=== PATIENT | male | born 1945 | race Caucasian/White ===

== ENCOUNTER 2023-08-06 22:17 | Inpatient (IN) | payer OTHER, MEDICAID ==
[~2023-08-06] VITALS: Ht 165.1 cm; Wt 96.6 kg
[2023-08-06 22:22] VITALS: BP 138/85; PULSE 95; RESP 20; TEMP 97.2; O2SAT 100
[2023-08-06 22:54] LABS: BASOPHILS % (AUTO) 0.3 % (0.0-2.0); EOSINOPHILS # (AUTO) 0.2 K/uL (0-0.4); EOSINOPHILS % (AUTO) 1.6 % (0.0-4.0); HEMATOCRIT 21.6 % (36-52); HEMOGLOBIN 7.1 g/dL (12.0-18.0); LYMPHOCYTES # (AUTO) 11.4 K/uL (2.0-11.5); LYMPHOCYTES % (AUTO) 77.6 % (20.5-51.1); MEAN CORPUSCULAR HEMOGLOBIN 32 pg (27-31); MEAN CORPUSCULAR HGB CONC 33 g/dL (33-37); MEAN CORPUSCULAR VOLUME 99.2 fL (80-94); MONOCYTES # (AUTO) 0.2 K/uL (0.8-1.0); MONOCYTES % (AUTO) 1.5 % (1.7-9.3); NEUTROPHILS # (AUTO) 2.8 K/uL (1.8-7.7); PLATELET COUNT (AUTO) 212 K/uL (140-450); RED BLOOD CELL COUNT(AUTO) 2.18 MIL/uL (4.20-6.10); RED CELL DISTRIBUTION WIDTH 17.2 % (11.6-13.7); WHITE BLOOD COUNT (AUTO) 14.6 K/uL (4.8-10.8)
[2023-08-06 22:57] LABS: APPEARANCE,URINE CLEAR (CLEAR); BILIRUBIN,URINE NEGATIVE (NEGATIVE); BLOOD, URINE 1+ (NEGATIVE); COLOR,URINE YELLOW (YELLOW); LEUKOCYTE ESTERASE ,URINE 3+ (NEGATIVE); NITRITE, URINE POSITIVE (NEGATIVE); PROTEIN,URINE TRACE (NEGATIVE); UGLUCOSE NEGATIVE (NEGATIVE); UROBILINOGEN,URINE 0.2 EU/dL (0.2 - 1)
[2023-08-06 23:00] VITALS: BP 115/62; PULSE 83; PULSE 85; RESP 16; O2SAT 100
[2023-08-06 23:08] LABS: ANION GAP 14.8 (8-16); CALCIUM 8.4 mg/dL (8.5-10.1); CARBON DIOXIDE 25.4 mmol/L (21-32); CHLORIDE 107 mmol/L (98-107); CREATININE 1.7 mg/dL (0.6-1.3); GLUCOSE 106 mg/dL (74-106); POTASSIUM 4.2 mmol/L (3.5-5.1); SODIUM SERUM 143 mmol/L (136-145); UREA NITROGEN, BLOOD 81 mg/dL (7-18)
[2023-08-06 23:13] LABS: ALBUMIN 1.8 g/dL (3.4-5.0); BILIRUBIN,DIRECT 0.2 mg/dL (0.0-0.3); TOTAL BILIRUBIN 0.6 mg/dL (0.0-1.0); TOTAL PROTEIN, SERUM 6.9 g/dL (6.4-8.2)
[2023-08-06 23:17] LABS: LACTIC ACID 0.7 mmol/L (0.4-2.0)
[2023-08-06 23:19] LABS: BACTERIA,URINE >30 (MANY) /HPF (None Seen); MUCUS,URINE 1+ /LPF (None Seen); SQUAMOUS EPITHELIAL CELL,UR 4-10 (MOD) /LPF (0-3 (FEW))
[2023-08-07] VITALS (16 sets, daily range): BP systolic 115–126; BP diastolic 70–72; PULSE 72–102; RESP 16–20; TEMP 98.4; O2SAT 92–100
[2023-08-07] MEDS ORDERED: MEROPENEM 1,000 MG VIAL IV ONE (03:12)
[2023-08-07] MEDS ORDERED: VANCOMYCIN 1,000 MG VIAL ONE (03:20)
[2023-08-07] MEDS: MEROPENEM 1,000 MG in NACL 0.9% 50 ML IV ONE (03:21)
[2023-08-07] MEDS: VANCOMYCIN 1,000 MG in DEXTROSE 5% 250 ML IV ONE (03:53)
[2023-08-07] MEDS ORDERED: [UNRECOGNIZED DRUG - CODE] IJ (04:26)
[2023-08-07] MEDS ORDERED: [UNRECOGNIZED DRUG - CODE] IJ (04:26)
[2023-08-07] MEDS ORDERED: [UNRECOGNIZED DRUG - CODE] TD (04:30)
[2023-08-07] MEDS ORDERED: ASPI-1749 PO (04:31)
[2023-08-07] MEDS ORDERED: MAGN400S60 GT (04:32)
[2023-08-07] MEDS ORDERED: DOCU-299 PO (04:32)
[2023-08-07] MEDS ORDERED: CARB1DRO OP (04:34)
[2023-08-07] MEDS ORDERED: ACET-8470 GT (04:34)
[2023-08-07] MEDS ORDERED: PRO5 GT (04:36)
[2023-08-07] MEDS ORDERED: CHOL5000 GT (04:36)
[2023-08-07] MEDS ORDERED: METO5TAB4 PO (04:36)
[2023-08-07] MEDS ORDERED: VITA1TAB44 GT (04:38)
[2023-08-07] MEDS ORDERED: [UNRECOGNIZED DRUG - CODE] GT (04:38)
[2023-08-07] MEDS ORDERED: ZINC220T3 GT (04:38)
[2023-08-07] MEDS ORDERED: ASCO500T95 GT (04:39)
[2023-08-07] MEDS ORDERED: HUM SUBQ (04:40)
[2023-08-07] MEDS: BLOOD GLUCOSE MONITORING 1 DEV DEV FS SCH (06:21)
[2023-08-07 07:49] LABS: BASOPHILS % (AUTO) 0.4 % (0.0-2.0); EOSINOPHILS # (AUTO) 0.2 K/uL (0-0.4); LYMPHOCYTES # (AUTO) 7.1 K/uL (2.0-11.5); LYMPHOCYTES % (AUTO) 72.3 % (20.5-51.1); MEAN CORPUSCULAR HEMOGLOBIN 33 pg (27-31); MEAN CORPUSCULAR HGB CONC 33 g/dL (33-37); MEAN CORPUSCULAR VOLUME 98.6 fL (80-94); MONOCYTES # (AUTO) 0.2 K/uL (0.8-1.0); MONOCYTES % (AUTO) 1.9 % (1.7-9.3); NEUTROPHILS # (AUTO) 2.3 K/uL (1.8-7.7); NEUTROPHILS % (AUTO) 23.4 % (42.2-75.2); PLATELET COUNT (AUTO) 185 K/uL (140-450); RED BLOOD CELL COUNT(AUTO) 1.98 MIL/uL (4.20-6.10); WHITE BLOOD COUNT (AUTO) 9.8 K/uL (4.8-10.8)
[2023-08-07 08:05] LABS: ALANINE AMINOTRANSFERASE 9 U/L (12-78); ALBUMIN 1.7 g/dL (3.4-5.0); ALKALINE PHOSPHATASE 106 U/L (50-136); ANION GAP 13.4 (8-16); ASPARTATE AMINOTRANSFERASE 10 U/L (15-37); CALCIUM 8.2 mg/dL (8.5-10.1); CARBON DIOXIDE 26.5 mmol/L (21-32); CHLORIDE 108 mmol/L (98-107); CREATININE 1.7 mg/dL (0.6-1.3); GLUCOSE 103 mg/dL (74-106); POTASSIUM 3.9 mmol/L (3.5-5.1); SODIUM SERUM 144 mmol/L (136-145); TOTAL BILIRUBIN 0.5 mg/dL (0.0-1.0); TOTAL PROTEIN, SERUM 6.4 g/dL (6.4-8.2)
[2023-08-07 08:12] LABS: UREA NITROGEN, BLOOD 77 mg/dL (7-18)
[2023-08-07 08:40] LABS: HEMOGLOBIN 6.5 g/dL (12.0-18.0)
[2023-08-07 08:41] LABS: HEMATOCRIT 19.5 % (36-52)
[2023-08-07] MEDS ORDERED: diphenhydrAMINE 12.5 MG/5 ML UDC NG SCH ×2 (09:08→09:09)
[2023-08-07] MEDS ORDERED: NACL 0.9% 1,000 ML IV SCH (09:10)
[2023-08-07] MEDS ORDERED: cefTRIAXone 1,000 MG VIAL ONE (09:30)
[2023-08-07] MEDS: PANTOPRAZOLE 40 MG INJ VIAL IVP SCH (09:37)
[2023-08-07 19:41] LABS: HEMATOCRIT 23.4 % (36-52); HEMOGLOBIN 7.8 g/dL (12.0-18.0)
[2023-08-08] VITALS (14 sets, daily range): BP systolic 105–121; BP diastolic 59–68; PULSE 78–111; RESP 16–20; TEMP 96.4–98.1; O2SAT 99–100
[2023-08-08 05:28] LABS: BASOPHILS % (AUTO) 0.3 % (0.0-2.0); EOSINOPHILS # (AUTO) 0.2 K/uL (0-0.4); EOSINOPHILS % (AUTO) 2.2 % (0.0-4.0); HEMATOCRIT 23.6 % (36-52); HEMOGLOBIN 7.9 g/dL (12.0-18.0); LYMPHOCYTES # (AUTO) 5.9 K/uL (2.0-11.5); LYMPHOCYTES % (AUTO) 67.5 % (20.5-51.1); MEAN CORPUSCULAR HEMOGLOBIN 33 pg (27-31); MEAN CORPUSCULAR HGB CONC 34 g/dL (33-37); MEAN CORPUSCULAR VOLUME 97.2 fL (80-94); MONOCYTES # (AUTO) 0.1 K/uL (0.8-1.0); MONOCYTES % (AUTO) 1.2 % (1.7-9.3); NEUTROPHILS # (AUTO) 2.5 K/uL (1.8-7.7); NEUTROPHILS % (AUTO) 28.8 % (42.2-75.2); PLATELET COUNT (AUTO) 187 K/uL (140-450); RED BLOOD CELL COUNT(AUTO) 2.43 MIL/uL (4.20-6.10); RED CELL DISTRIBUTION WIDTH 17.2 % (11.6-13.7); WHITE BLOOD COUNT (AUTO) 8.7 K/uL (4.8-10.8)
[2023-08-08 06:48] LABS: MAGNESIUM 2.7 mg/dL (1.8-2.4); PHOSPHORUS 4.9 mg/dL (2.5-4.9)
[2023-08-08] MEDS: MAG SULF 2000 MG/WATER PREMIX 50 ML IV SCH (07:45)
[2023-08-08 08:00] LABS: ALANINE AMINOTRANSFERASE 6 U/L (12-78); ALBUMIN 1.7 g/dL (3.4-5.0); ALKALINE PHOSPHATASE 102 U/L (50-136); ANION GAP 16.7 (8-16); ASPARTATE AMINOTRANSFERASE 14 U/L (15-37); CALCIUM 8.3 mg/dL (8.5-10.1); CARBON DIOXIDE 24.2 mmol/L (21-32); CHLORIDE 109 mmol/L (98-107); CREATININE 1.6 mg/dL (0.6-1.3); GLUCOSE 113 mg/dL (74-106); POTASSIUM 3.9 mmol/L (3.5-5.1); SODIUM SERUM 146 mmol/L (136-145); TOTAL BILIRUBIN 0.6 mg/dL (0.0-1.0); TOTAL PROTEIN, SERUM 6.3 g/dL (6.4-8.2)
[2023-08-08 08:44] LABS: UREA NITROGEN, BLOOD 77 mg/dL (7-18)
[2023-08-08] MEDS: ASCORBIC ACID 500 MG/5 ML ORASYR GT SCH (09:41)
[2023-08-08] MEDS: VIT-B COMP/VIT-C/FOLIC ACID 1 TAB GT SCH (09:41)
[2023-08-08] MEDS: ASPIRIN 81 MG TAB.CHEW GT SCH (09:41)
[2023-08-08] MEDS: MAGNESIUM HYDROXIDE 2400 MG/30 ML UDC GT SCH (09:41)
[2023-08-08] MEDS: AMIODARONE 200 MG TAB GT SCH (09:42)
[2023-08-08] MEDS: SODIUM FERRIC GLUCONATE 125 MG in NACL 0.9% 100 ML IV SCH (13:53)
[2023-08-09] VITALS (15 sets, daily range): BP systolic 99–132; BP diastolic 55–74; PULSE 67–122; RESP 17–22; TEMP 96.3–98.3; O2SAT 97–100
[2023-08-09 05:28] LABS: BASOPHILS % (AUTO) 0.5 % (0.0-2.0); EOSINOPHILS # (AUTO) 0.1 K/uL (0-0.4); EOSINOPHILS % (AUTO) 1.7 % (0.0-4.0); HEMATOCRIT 24.1 % (36-52); LYMPHOCYTES # (AUTO) 5.5 K/uL (2.0-11.5); LYMPHOCYTES % (AUTO) 64.8 % (20.5-51.1); MEAN CORPUSCULAR HEMOGLOBIN 32 pg (27-31); MEAN CORPUSCULAR HGB CONC 33 g/dL (33-37); MEAN CORPUSCULAR VOLUME 96.7 fL (80-94); MONOCYTES # (AUTO) 0.1 K/uL (0.8-1.0); MONOCYTES % (AUTO) 1.2 % (1.7-9.3); NEUTROPHILS # (AUTO) 2.7 K/uL (1.8-7.7); NEUTROPHILS % (AUTO) 31.8 % (42.2-75.2); PLATELET COUNT (AUTO) 234 K/uL (140-450); RED CELL DISTRIBUTION WIDTH 16.7 % (11.6-13.7); WHITE BLOOD COUNT (AUTO) 8.5 K/uL (4.8-10.8)
[2023-08-09 06:15] LABS: MAGNESIUM 2.6 mg/dL (1.8-2.4); PHOSPHORUS 4.6 mg/dL (2.5-4.9)
[2023-08-09 08:16] LABS: ALANINE AMINOTRANSFERASE 15 U/L (12-78); ALBUMIN 1.8 g/dL (3.4-5.0); ALKALINE PHOSPHATASE 134 U/L (50-136); ANION GAP 19.9 (8-16); ASPARTATE AMINOTRANSFERASE 13 U/L (15-37); CALCIUM 8.6 mg/dL (8.5-10.1); CARBON DIOXIDE 19.9 mmol/L (21-32); CHLORIDE 109 mmol/L (98-107); CREATININE 1.6 mg/dL (0.6-1.3); GLUCOSE 221 mg/dL (74-106); POTASSIUM 3.8 mmol/L (3.5-5.1); SODIUM SERUM 145 mmol/L (136-145); TOTAL BILIRUBIN 0.6 mg/dL (0.0-1.0); TOTAL PROTEIN, SERUM 6.2 g/dL (6.4-8.2)
[2023-08-09 08:18] LABS: UREA NITROGEN, BLOOD 71 mg/dL (7-18)
[2023-08-09 09:04] LABS: CHOL/HDL RATIO 3.3 (1-4.5)
[2023-08-09] MEDS: FUROSEMIDE 40 MG/4 ML VIAL IVP SCH ×2 (09:09→20:39)
[2023-08-09] MEDS: ATORVASTATIN 20 MG TAB PO SCH (09:09)
[2023-08-09] MEDS: carvediloL 3.125 MG TAB PO SCH (10:54)
[2023-08-09] MEDS ORDERED: HYDROCOLLOID DRESSING TP PRN (11:40)
[2023-08-09] MEDS ORDERED: HYDRAGUARD CREAM TP PRN (11:40)
[2023-08-09] MEDS ORDERED: THERAHONEY GEL 42.5 GM TP PRN (11:40)
[2023-08-09] MEDS: THERAHONEY GEL 42.5 GM TP SCH (13:00)
[2023-08-09] MEDS: HYDRAGUARD CREAM TP SCH (13:03)
[2023-08-09] MEDS ORDERED: FLUCONAZOLE 100 MG TAB GT SCH (18:00)
[2023-08-09] MEDS: FLUCONAZOLE 100 MG TAB GT SCH (18:05)
[2023-08-09] MEDS: MICAFUNGIN SODIUM 100 MG in NACL 0.9% 100 ML IV SCH (22:30)
[2023-08-10] VITALS (11 sets, daily range): BP systolic 131–147; BP diastolic 60–78; PULSE 70–130; RESP 16–23; TEMP 36.1; O2SAT 95–99
[2023-08-10 06:06] LABS: BASOPHILS % (AUTO) 0.6 % (0.0-2.0); EOSINOPHILS # (AUTO) 0.1 K/uL (0-0.4); EOSINOPHILS % (AUTO) 1.7 % (0.0-4.0); HEMATOCRIT 22.1 % (36-52); HEMOGLOBIN 7.6 g/dL (12.0-18.0); MEAN CORPUSCULAR HEMOGLOBIN 33 pg (27-31); MEAN CORPUSCULAR HGB CONC 34 g/dL (33-37); MEAN CORPUSCULAR VOLUME 95.6 fL (80-94); MONOCYTES # (AUTO) 0.2 K/uL (0.8-1.0); MONOCYTES % (AUTO) 2.4 % (1.7-9.3); NEUTROPHILS # (AUTO) 2.4 K/uL (1.8-7.7); NEUTROPHILS % (AUTO) 35.3 % (42.2-75.2); PLATELET COUNT (AUTO) 226 K/uL (140-450); RED BLOOD CELL COUNT(AUTO) 2.31 MIL/uL (4.20-6.10); RED CELL DISTRIBUTION WIDTH 16.9 % (11.6-13.7); WHITE BLOOD COUNT (AUTO) 6.7 K/uL (4.8-10.8)
[2023-08-10 06:38] LABS: ALANINE AMINOTRANSFERASE 7 U/L (12-78); ALBUMIN 1.7 g/dL (3.4-5.0); ALKALINE PHOSPHATASE 147 U/L (50-136); ASPARTATE AMINOTRANSFERASE 10 U/L (15-37); CALCIUM 8.1 mg/dL (8.5-10.1); CARBON DIOXIDE 25.5 mmol/L (21-32); CHLORIDE 108 mmol/L (98-107); CREATININE 1.7 mg/dL (0.6-1.3); GLUCOSE 375 mg/dL (74-106); POTASSIUM 3.5 mmol/L (3.5-5.1); SODIUM SERUM 146 mmol/L (136-145); TOTAL BILIRUBIN 0.4 mg/dL (0.0-1.0); TOTAL PROTEIN, SERUM 6.3 g/dL (6.4-8.2); UREA NITROGEN, BLOOD 72 mg/dL (7-18)
[2023-08-10] MEDS: SODIUM FERRIC GLUCONATE 125 MG in NACL 0.9% 100 ML IV SCH (11:41)
[2023-08-11] VITALS (16 sets, daily range): BP systolic 121–149; BP diastolic 62–96; PULSE 97–134; RESP 17–25; TEMP 97.8–99.2; O2SAT 96–100
[2023-08-11 06:14] LABS: BASOPHILS % (AUTO) 0.6 % (0.0-2.0); EOSINOPHILS % (AUTO) 0.1 % (0.0-4.0); HEMATOCRIT 23.3 % (36-52); HEMOGLOBIN 7.8 g/dL (12.0-18.0); LYMPHOCYTES # (AUTO) 3.6 K/uL (2.0-11.5); LYMPHOCYTES % (AUTO) 60.5 % (20.5-51.1); MEAN CORPUSCULAR HEMOGLOBIN 32 pg (27-31); MEAN CORPUSCULAR HGB CONC 33 g/dL (33-37); MEAN CORPUSCULAR VOLUME 96.2 fL (80-94); MONOCYTES # (AUTO) 0.1 K/uL (0.8-1.0); MONOCYTES % (AUTO) 0.9 % (1.7-9.3); NEUTROPHILS # (AUTO) 2.2 K/uL (1.8-7.7); NEUTROPHILS % (AUTO) 37.9 % (42.2-75.2); PLATELET COUNT (AUTO) 239 K/uL (140-450); RED BLOOD CELL COUNT(AUTO) 2.43 MIL/uL (4.20-6.10); RED CELL DISTRIBUTION WIDTH 17.2 % (11.6-13.7); WHITE BLOOD COUNT (AUTO) 5.9 K/uL (4.8-10.8)
[2023-08-11 06:41] LABS: ALANINE AMINOTRANSFERASE 7 U/L (12-78); ALBUMIN 1.8 g/dL (3.4-5.0); ALKALINE PHOSPHATASE 138 U/L (50-136); ASPARTATE AMINOTRANSFERASE 10 U/L (15-37); CALCIUM 8.3 mg/dL (8.5-10.1); CARBON DIOXIDE 24.7 mmol/L (21-32); CHLORIDE 107 mmol/L (98-107); CREATININE 1.8 mg/dL (0.6-1.3); POTASSIUM 3.7 mmol/L (3.5-5.1); SODIUM SERUM 146 mmol/L (136-145); TOTAL BILIRUBIN 0.4 mg/dL (0.0-1.0); TOTAL PROTEIN, SERUM 6.6 g/dL (6.4-8.2)
[2023-08-11] MEDS ORDERED: DEXTROSE 50% 50 ML SYR IVP PRN (07:45)
[2023-08-11 07:55] LABS: GLUCOSE 605 mg/dL (74-106)
[2023-08-11 07:56] LABS: UREA NITROGEN, BLOOD 78 mg/dL (7-18)
[2023-08-11] MEDS: INSULIN LISPRO SLIDING SCALE 100 UNITS/ML VIAL SUBQ PRN (08:14)
[2023-08-11] MEDS: INSULIN LANTUS 100 UNITS/ML 10 ML VIAL SUBQ SCH (08:58)
[2023-08-11] MEDS ORDERED: EPOETIN ALFA 4,000 UNITS/ML VIAL IV SCH (09:00)
[2023-08-11] MEDS: NACL 0.9% 500 ML IV SCH (09:12)
[2023-08-11] MEDS: BLOOD GLUCOSE MONITORING 1 DEV DEV FS SCH (10:59)
[2023-08-11] MEDS: FUROSEMIDE 40 MG/4 ML VIAL IVP SCH (12:38)
[2023-08-11] MEDS: INSULIN LISPRO 100 UNITS/ML VIAL SUBQ ONE (21:33)
[2023-08-12] VITALS (14 sets, daily range): BP systolic 121–133; BP diastolic 67–75; PULSE 86–109; RESP 16–21; TEMP 97.7–98.3; O2SAT 97–100
[2023-08-12 06:58] LABS: BASOPHILS % (AUTO) 0.4 % (0.0-2.0); EOSINOPHILS % (AUTO) 0.3 % (0.0-4.0); HEMATOCRIT 21.3 % (36-52); HEMOGLOBIN 7.4 g/dL (12.0-18.0); LYMPHOCYTES # (AUTO) 4.4 K/uL (2.0-11.5); LYMPHOCYTES % (AUTO) 65.9 % (20.5-51.1); MEAN CORPUSCULAR HEMOGLOBIN 33 pg (27-31); MEAN CORPUSCULAR HGB CONC 35 g/dL (33-37); MEAN CORPUSCULAR VOLUME 95.3 fL (80-94); MONOCYTES # (AUTO) 0.1 K/uL (0.8-1.0); NEUTROPHILS # (AUTO) 2.2 K/uL (1.8-7.7); NEUTROPHILS % (AUTO) 32.4 % (42.2-75.2); PLATELET COUNT (AUTO) 239 K/uL (140-450); RED BLOOD CELL COUNT(AUTO) 2.23 MIL/uL (4.20-6.10); RED CELL DISTRIBUTION WIDTH 16.7 % (11.6-13.7); WHITE BLOOD COUNT (AUTO) 6.7 K/uL (4.8-10.8)
[2023-08-12 07:23] LABS: ALANINE AMINOTRANSFERASE 9 U/L (12-78); ALBUMIN 1.7 g/dL (3.4-5.0); ALKALINE PHOSPHATASE 123 U/L (50-136); ANION GAP 13.4 (8-16); ASPARTATE AMINOTRANSFERASE 21 U/L (15-37); CALCIUM 8.2 mg/dL (8.5-10.1); CHLORIDE 109 mmol/L (98-107); CREATININE 1.8 mg/dL (0.6-1.3); POTASSIUM 3.4 mmol/L (3.5-5.1); SODIUM SERUM 145 mmol/L (136-145); TOTAL BILIRUBIN 0.4 mg/dL (0.0-1.0); TOTAL PROTEIN, SERUM 6.2 g/dL (6.4-8.2)
[2023-08-12 07:32] LABS: GLUCOSE 484 mg/dL (74-106); UREA NITROGEN, BLOOD 87 mg/dL (7-18)
[2023-08-12] MEDS: HYDROCOLLOID DRESSING TP SCH (09:00)
[2023-08-12] MEDS ORDERED: metOLazone 5 MG TAB PO SCH (09:00)
[2023-08-12] MEDS: FUROSEMIDE 40 MG/4 ML VIAL IVP SCH (09:44)
[2023-08-12] MEDS: POTASSIUM CHLORIDE 20% 40 MEQ/15 ML UDC GT PRN (09:45)
[2023-08-12] MEDS: INSULIN LANTUS 100 UNITS/ML 10 ML VIAL SUBQ SCH (09:47)
[2023-08-12] MEDS ORDERED: MEROPENEM 1,000 MG in NACL 0.9% 50 ML IV SCH (13:00)
[2023-08-12] MEDS ORDERED: MEROPENEM 500 MG in NACL 0.9% 50 ML IV SCH (13:00)
[2023-08-13] VITALS (13 sets, daily range): BP systolic 126–144; BP diastolic 68–83; PULSE 81–113; RESP 18–20; TEMP 97.8–98.4; O2SAT 98–100
[2023-08-13 06:55] LABS: ANION GAP 11.9 (8-16); CALCIUM 8.5 mg/dL (8.5-10.1); CARBON DIOXIDE 29.8 mmol/L (21-32); CHLORIDE 111 mmol/L (98-107); CREATININE 1.8 mg/dL (0.6-1.3); POTASSIUM 3.7 mmol/L (3.5-5.1); SODIUM SERUM 149 mmol/L (136-145)
[2023-08-13 06:57] LABS: GLUCOSE 448 mg/dL (74-106); UREA NITROGEN, BLOOD 91 mg/dL (7-18)
[2023-08-13] MEDS: INSULIN LANTUS 100 UNITS/ML 10 ML VIAL SUBQ SCH (12:43)
[2023-08-14] VITALS (15 sets, daily range): BP systolic 120–141; BP diastolic 66–86; PULSE 81–105; RESP 18–20; TEMP 97.3–99.6; O2SAT 98–100
[2023-08-14 07:45] LABS: INR 1.16 (0.8-1.2); PARTIAL THROMBOPLASTIN TIME 26.7 secs (22-35.6); PROTHROMBIN TIME 12.1 secs (10.8-13.4)
[2023-08-14 11:34] LABS: BASOPHILS % (AUTO) 0.5 % (0.0-2.0); EOSINOPHILS # (AUTO) 0.1 K/uL (0-0.4); EOSINOPHILS % (AUTO) 1.1 % (0.0-4.0); HEMATOCRIT 23.1 % (36-52); HEMOGLOBIN 7.8 g/dL (12.0-18.0); LYMPHOCYTES # (AUTO) 4.6 K/uL (2.0-11.5); LYMPHOCYTES % (AUTO) 57.3 % (20.5-51.1); MEAN CORPUSCULAR HEMOGLOBIN 32 pg (27-31); MEAN CORPUSCULAR HGB CONC 34 g/dL (33-37); MONOCYTES # (AUTO) 0.1 K/uL (0.8-1.0); MONOCYTES % (AUTO) 0.8 % (1.7-9.3); NEUTROPHILS # (AUTO) 3.3 K/uL (1.8-7.7); NEUTROPHILS % (AUTO) 40.3 % (42.2-75.2); PLATELET COUNT (AUTO) 257 K/uL (140-450); RED BLOOD CELL COUNT(AUTO) 2.41 MIL/uL (4.20-6.10); RED CELL DISTRIBUTION WIDTH 16.6 % (11.6-13.7); WHITE BLOOD COUNT (AUTO) 8.1 K/uL (4.8-10.8)
[2023-08-14 11:49] LABS: ALANINE AMINOTRANSFERASE 26 U/L (12-78); ALBUMIN 1.8 g/dL (3.4-5.0); ALKALINE PHOSPHATASE 113 U/L (50-136); ANION GAP 10.8 (8-16); ASPARTATE AMINOTRANSFERASE 20 U/L (15-37); CALCIUM 8.5 mg/dL (8.5-10.1); CARBON DIOXIDE 30.7 mmol/L (21-32); CHLORIDE 112 mmol/L (98-107); CREATININE 1.6 mg/dL (0.6-1.3); GLUCOSE 250 mg/dL (74-106); POTASSIUM 3.5 mmol/L (3.5-5.1); SODIUM SERUM 150 mmol/L (136-145); TOTAL BILIRUBIN 0.3 mg/dL (0.0-1.0); TOTAL PROTEIN, SERUM 5.9 g/dL (6.4-8.2)
[2023-08-14 11:59] LABS: UREA NITROGEN, BLOOD 86 mg/dL (7-18)
[2023-08-15] VITALS (11 sets, daily range): BP systolic 122–148; BP diastolic 63–72; PULSE 88–104; RESP 18–20; TEMP 97.7–98.8; O2SAT 10–100
[2023-08-15 06:11] LABS: BASOPHILS % (AUTO) 0.2 % (0.0-2.0); EOSINOPHILS # (AUTO) 0.1 K/uL (0-0.4); EOSINOPHILS % (AUTO) 1.7 % (0.0-4.0); HEMATOCRIT 22.7 % (36-52); HEMOGLOBIN 7.7 g/dL (12.0-18.0); LYMPHOCYTES # (AUTO) 4.7 K/uL (2.0-11.5); LYMPHOCYTES % (AUTO) 58.1 % (20.5-51.1); MEAN CORPUSCULAR HEMOGLOBIN 33 pg (27-31); MEAN CORPUSCULAR HGB CONC 34 g/dL (33-37); MEAN CORPUSCULAR VOLUME 96.2 fL (80-94); MONOCYTES # (AUTO) 0.1 K/uL (0.8-1.0); NEUTROPHILS # (AUTO) 3.2 K/uL (1.8-7.7); PLATELET COUNT (AUTO) 232 K/uL (140-450); RED BLOOD CELL COUNT(AUTO) 2.36 MIL/uL (4.20-6.10); RED CELL DISTRIBUTION WIDTH 16.8 % (11.6-13.7); WHITE BLOOD COUNT (AUTO) 8.1 K/uL (4.8-10.8)
[2023-08-15 06:37] LABS: CARBON DIOXIDE 29.5 mmol/L (21-32); CHLORIDE 115 mmol/L (98-107); POTASSIUM 3.4 mmol/L (3.5-5.1); SODIUM SERUM 154 mmol/L (136-145)
[2023-08-15 06:38] LABS: ALANINE AMINOTRANSFERASE 26 U/L (12-78); ALBUMIN 1.7 g/dL (3.4-5.0); ALKALINE PHOSPHATASE 128 U/L (50-136); ANION GAP 12.9 (8-16); ASPARTATE AMINOTRANSFERASE 25 U/L (15-37); CALCIUM 8.1 mg/dL (8.5-10.1); CREATININE 1.6 mg/dL (0.6-1.3); GLUCOSE 232 mg/dL (74-106); TOTAL BILIRUBIN 0.4 mg/dL (0.0-1.0); TOTAL PROTEIN, SERUM 6.2 g/dL (6.4-8.2)
[2023-08-15 08:36] LABS: UREA NITROGEN, BLOOD 85 mg/dL (7-18)
[2023-08-15] MEDS: FUROSEMIDE 40 MG/4 ML VIAL IVP SCH (17:16)
[2023-08-16] VITALS (10 sets, daily range): BP systolic 126–133; BP diastolic 79–84; PULSE 87–128; RESP 17–20; TEMP 99.1–102.5; O2SAT 98–100
[2023-08-16 05:40] LABS: BASOPHILS % (AUTO) 0.4 % (0.0-2.0); EOSINOPHILS # (AUTO) 0.2 K/uL (0-0.4); HEMATOCRIT 22.7 % (36-52); HEMOGLOBIN 7.6 g/dL (12.0-18.0); LYMPHOCYTES # (AUTO) 5.1 K/uL (2.0-11.5); LYMPHOCYTES % (AUTO) 62.7 % (20.5-51.1); MEAN CORPUSCULAR HEMOGLOBIN 32 pg (27-31); MEAN CORPUSCULAR HGB CONC 34 g/dL (33-37); MEAN CORPUSCULAR VOLUME 96.3 fL (80-94); MONOCYTES # (AUTO) 0.1 K/uL (0.8-1.0); MONOCYTES % (AUTO) 1.3 % (1.7-9.3); NEUTROPHILS # (AUTO) 2.7 K/uL (1.8-7.7); NEUTROPHILS % (AUTO) 33.6 % (42.2-75.2); PLATELET COUNT (AUTO) 214 K/uL (140-450); RED BLOOD CELL COUNT(AUTO) 2.36 MIL/uL (4.20-6.10); RED CELL DISTRIBUTION WIDTH 17.1 % (11.6-13.7); WHITE BLOOD COUNT (AUTO) 8.2 K/uL (4.8-10.8)
[2023-08-16 06:36] LABS: ALANINE AMINOTRANSFERASE 25 U/L (12-78); ALBUMIN 1.7 g/dL (3.4-5.0); ALKALINE PHOSPHATASE 114 U/L (50-136); ASPARTATE AMINOTRANSFERASE 17 U/L (15-37); CALCIUM 8.4 mg/dL (8.5-10.1); CARBON DIOXIDE 29.5 mmol/L (21-32); CHLORIDE 112 mmol/L (98-107); CREATININE 1.5 mg/dL (0.6-1.3); GLUCOSE 221 mg/dL (74-106); POTASSIUM 4.5 mmol/L (3.5-5.1); SODIUM SERUM 151 mmol/L (136-145); TOTAL PROTEIN, SERUM 5.8 g/dL (6.4-8.2)
[2023-08-16 07:11] LABS: UREA NITROGEN, BLOOD 89 mg/dL (7-18)
[2023-08-16 10:16] LABS: TOTAL BILIRUBIN 0.4 mg/dL (0.0-1.0)
[2023-08-16] MEDS: ACETAMINOPHEN 325 MG TAB PO PRN (20:37)
[2023-08-17] VITALS (15 sets, daily range): BP systolic 115–135; BP diastolic 62–95; PULSE 93–115; RESP 18–20; TEMP 97.2–99.4; O2SAT 100
[2023-08-17 05:58] LABS: BASOPHILS % (AUTO) 0.2 % (0.0-2.0); EOSINOPHILS # (AUTO) 0.1 K/uL (0-0.4); EOSINOPHILS % (AUTO) 1.5 % (0.0-4.0); LYMPHOCYTES # (AUTO) 6.2 K/uL (2.0-11.5); LYMPHOCYTES % (AUTO) 71.2 % (20.5-51.1); MEAN CORPUSCULAR HEMOGLOBIN 32 pg (27-31); MEAN CORPUSCULAR HGB CONC 33 g/dL (33-37); MEAN CORPUSCULAR VOLUME 96.2 fL (80-94); MONOCYTES # (AUTO) 0.1 K/uL (0.8-1.0); MONOCYTES % (AUTO) 1.4 % (1.7-9.3); NEUTROPHILS # (AUTO) 2.2 K/uL (1.8-7.7); NEUTROPHILS % (AUTO) 25.7 % (42.2-75.2); PLATELET COUNT (AUTO) 189 K/uL (140-450); RED BLOOD CELL COUNT(AUTO) 2.16 MIL/uL (4.20-6.10); RED CELL DISTRIBUTION WIDTH 17.1 % (11.6-13.7); WHITE BLOOD COUNT (AUTO) 8.7 K/uL (4.8-10.8)
[2023-08-17 06:06] LABS: HEMATOCRIT 20.8 % (36-52)
[2023-08-17 06:40] LABS: ALANINE AMINOTRANSFERASE 22 U/L (12-78); ALBUMIN 1.5 g/dL (3.4-5.0); ALKALINE PHOSPHATASE 115 U/L (50-136); ANION GAP 13.1 (8-16); ASPARTATE AMINOTRANSFERASE 28 U/L (15-37); CALCIUM 7.9 mg/dL (8.5-10.1); CARBON DIOXIDE 30.5 mmol/L (21-32); CHLORIDE 112 mmol/L (98-107); CREATININE 1.6 mg/dL (0.6-1.3); GLUCOSE 167 mg/dL (74-106); POTASSIUM 4.6 mmol/L (3.5-5.1); SODIUM SERUM 151 mmol/L (136-145); TOTAL BILIRUBIN 0.6 mg/dL (0.0-1.0); TOTAL PROTEIN, SERUM 5.9 g/dL (6.4-8.2)
[2023-08-17 06:45] LABS: UREA NITROGEN, BLOOD 92 mg/dL (7-18)
[2023-08-17] MEDS ORDERED: ACETAMINOPHEN 325 MG TAB PO SCH (09:30)
[2023-08-17 12:13] LABS: HEMOGLOBIN 8.1 g/dL (12.0-18.0)
[2023-08-17] MEDS: fentaNYL citrate 0.05 MG/ML VIAL ONE (13:49)
[2023-08-17] MEDS: MIDAZOLAM 2 MG/2 ML VIAL ONE (13:49)
[2023-08-17] MEDS: MICAFUNGIN SODIUM 100 MG in NACL 0.9% 100 ML IV SCH (18:19)
[2023-08-18] VITALS (19 sets, daily range): BP systolic 98–136; BP diastolic 55–63; PULSE 91–106; RESP 18–20; TEMP 97.2–99.8; O2SAT 95–100
[2023-08-18 05:48] LABS: BASOPHILS # (AUTO) 0.1 K/uL (0.00-0.22); BASOPHILS % (AUTO) 0.5 % (0.0-2.0); EOSINOPHILS # (AUTO) 0.1 K/uL (0-0.4); EOSINOPHILS % (AUTO) 1.4 % (0.0-4.0); HEMATOCRIT 23.7 % (36-52); LYMPHOCYTES # (AUTO) 7.6 K/uL (2.0-11.5); LYMPHOCYTES % (AUTO) 71.4 % (20.5-51.1); MEAN CORPUSCULAR HEMOGLOBIN 32 pg (27-31); MEAN CORPUSCULAR HGB CONC 34 g/dL (33-37); MEAN CORPUSCULAR VOLUME 93.8 fL (80-94); MONOCYTES # (AUTO) 0.2 K/uL (0.8-1.0); MONOCYTES % (AUTO) 1.5 % (1.7-9.3); NEUTROPHILS # (AUTO) 2.7 K/uL (1.8-7.7); NEUTROPHILS % (AUTO) 25.2 % (42.2-75.2); PLATELET COUNT (AUTO) 168 K/uL (140-450); RED BLOOD CELL COUNT(AUTO) 2.52 MIL/uL (4.20-6.10); RED CELL DISTRIBUTION WIDTH 17.6 % (11.6-13.7); WHITE BLOOD COUNT (AUTO) 10.6 K/uL (4.8-10.8)
[2023-08-18 06:39] LABS: ALANINE AMINOTRANSFERASE 28 U/L (12-78); ALBUMIN 1.5 g/dL (3.4-5.0); ALKALINE PHOSPHATASE 124 U/L (50-136); ANION GAP 13.3 (8-16); ASPARTATE AMINOTRANSFERASE 35 U/L (15-37); CALCIUM 7.8 mg/dL (8.5-10.1); CARBON DIOXIDE 28.8 mmol/L (21-32); CHLORIDE 110 mmol/L (98-107); CREATININE 1.7 mg/dL (0.6-1.3); GLUCOSE 299 mg/dL (74-106); MAGNESIUM 2.6 mg/dL (1.8-2.4); PHOSPHORUS 4.1 mg/dL (2.5-4.9); POTASSIUM 5.1 mmol/L (3.5-5.1); SODIUM SERUM 147 mmol/L (136-145); TOTAL BILIRUBIN 0.4 mg/dL (0.0-1.0)
[2023-08-18 06:42] LABS: UREA NITROGEN, BLOOD 90 mg/dL (7-18)
[2023-08-19] VITALS (19 sets, daily range): BP systolic 111–131; BP diastolic 56–88; PULSE 99–118; RESP 17–20; TEMP 97.8–100.5; O2SAT 98–100
[2023-08-19 06:23] LABS: ALANINE AMINOTRANSFERASE 32 U/L (12-78); ALBUMIN 1.4 g/dL (3.4-5.0); ALKALINE PHOSPHATASE 126 U/L (50-136); ANION GAP 10.3 (8-16); ASPARTATE AMINOTRANSFERASE 35 U/L (15-37); CALCIUM 7.6 mg/dL (8.5-10.1); CHLORIDE 109 mmol/L (98-107); CREATININE 1.8 mg/dL (0.6-1.3); GLUCOSE 232 mg/dL (74-106); MAGNESIUM 2.6 mg/dL (1.8-2.4); POTASSIUM 5.3 mmol/L (3.5-5.1); SODIUM SERUM 144 mmol/L (136-145); TOTAL BILIRUBIN 0.4 mg/dL (0.0-1.0); TOTAL PROTEIN, SERUM 5.7 g/dL (6.4-8.2)
[2023-08-19 06:28] LABS: UREA NITROGEN, BLOOD 90 mg/dL (7-18)
[2023-08-19 06:29] LABS: BASOPHILS % (AUTO) 0.2 % (0.0-2.0); EOSINOPHILS # (AUTO) 0.2 K/uL (0-0.4); EOSINOPHILS % (AUTO) 1.3 % (0.0-4.0); HEMATOCRIT 24.4 % (36-52); HEMOGLOBIN 8.2 g/dL (12.0-18.0); LYMPHOCYTES % (AUTO) 68.7 % (20.5-51.1); MEAN CORPUSCULAR HEMOGLOBIN 31 pg (27-31); MEAN CORPUSCULAR HGB CONC 34 g/dL (33-37); MEAN CORPUSCULAR VOLUME 93.7 fL (80-94); MONOCYTES # (AUTO) 0.2 K/uL (0.8-1.0); MONOCYTES % (AUTO) 1.4 % (1.7-9.3); NEUTROPHILS # (AUTO) 3.3 K/uL (1.8-7.7); NEUTROPHILS % (AUTO) 28.4 % (42.2-75.2); PLATELET COUNT (AUTO) 221 K/uL (140-450); RED BLOOD CELL COUNT(AUTO) 2.61 MIL/uL (4.20-6.10); RED CELL DISTRIBUTION WIDTH 17.4 % (11.6-13.7); WHITE BLOOD COUNT (AUTO) 11.7 K/uL (4.8-10.8)
[2023-08-19] MEDS: SODIUM POLYSTYRENE 15 GM/60 ML UDBTL PO SCH (15:45)
[2023-08-19] MEDS: METOPROLOL 50 MG TAB PO SCH (15:58)
[2023-08-19] MEDS: CRUSHER, PILL MC ONE (16:12)
[2023-08-20] VITALS (16 sets, daily range): BP systolic 107–126; BP diastolic 54–78; PULSE 96–132; RESP 19–20; TEMP 98.4–99.1; O2SAT 98–100
[2023-08-20 06:51] LABS: ALANINE AMINOTRANSFERASE 42 U/L (12-78); ALBUMIN 1.5 g/dL (3.4-5.0); ALKALINE PHOSPHATASE 144 U/L (50-136); ANION GAP 13.1 (8-16); ASPARTATE AMINOTRANSFERASE 41 U/L (15-37); CALCIUM 7.7 mg/dL (8.5-10.1); CHLORIDE 107 mmol/L (98-107); CREATININE 1.9 mg/dL (0.6-1.3); GLUCOSE 209 mg/dL (74-106); MAGNESIUM 2.7 mg/dL (1.8-2.4); PHOSPHORUS 4.3 mg/dL (2.5-4.9); POTASSIUM 5.1 mmol/L (3.5-5.1); SODIUM SERUM 144 mmol/L (136-145); TOTAL BILIRUBIN 0.4 mg/dL (0.0-1.0)
[2023-08-20 06:58] LABS: UREA NITROGEN, BLOOD 96 mg/dL (7-18)
[2023-08-20 08:20] LABS: BASOPHILS # (AUTO) 0.1 K/uL (0.00-0.22); BASOPHILS % (AUTO) 0.5 % (0.0-2.0); EOSINOPHILS # (AUTO) 0.1 K/uL (0-0.4); EOSINOPHILS % (AUTO) 1.1 % (0.0-4.0); HEMATOCRIT 22.2 % (36-52); HEMOGLOBIN 7.3 g/dL (12.0-18.0); LYMPHOCYTES # (AUTO) 8.5 K/uL (2.0-11.5); MEAN CORPUSCULAR HEMOGLOBIN 31 pg (27-31); MEAN CORPUSCULAR HGB CONC 33 g/dL (33-37); MEAN CORPUSCULAR VOLUME 95.1 fL (80-94); MONOCYTES # (AUTO) 0.2 K/uL (0.8-1.0); MONOCYTES % (AUTO) 1.3 % (1.7-9.3); NEUTROPHILS # (AUTO) 3.1 K/uL (1.8-7.7); NEUTROPHILS % (AUTO) 26.1 % (42.2-75.2); PLATELET COUNT (AUTO) 229 K/uL (140-450); RED BLOOD CELL COUNT(AUTO) 2.33 MIL/uL (4.20-6.10); RED CELL DISTRIBUTION WIDTH 17.1 % (11.6-13.7); WHITE BLOOD COUNT (AUTO) 11.9 K/uL (4.8-10.8)
[2023-08-20] MEDS: METOPROLOL 50 MG TAB PO SCH ×2 (11:58→20:46)
[2023-08-20] MEDS: NACL 0.9% 1,000 ML IV SCH (18:25)
[2023-08-21] VITALS: BP 108/66; PULSE 100; PULSE 103; RESP 19; TEMP 98.7; O2SAT 99
[2023-08-21 00:32] VITALS: PULSE 110; O2SAT 99
[2023-08-21 04:00] VITALS: BP 104/59; PULSE 101; RESP 19; TEMP 99.1; O2SAT 99
[2023-08-21 04:04] VITALS: PULSE 106; O2SAT 98
[2023-08-21 08:00] VITALS: PULSE 107; O2SAT 100
[2023-08-21 09:16] LABS: BASOPHILS # (AUTO) 0.1 K/uL (0.00-0.22); BASOPHILS % (AUTO) 0.9 % (0.0-2.0); EOSINOPHILS # (AUTO) 0.1 K/uL (0-0.4); HEMATOCRIT 22.9 % (36-52); HEMOGLOBIN 7.4 g/dL (12.0-18.0); LYMPHOCYTES # (AUTO) 8.4 K/uL (2.0-11.5); LYMPHOCYTES % (AUTO) 67.6 % (20.5-51.1); MEAN CORPUSCULAR HEMOGLOBIN 31 pg (27-31); MEAN CORPUSCULAR HGB CONC 33 g/dL (33-37); MEAN CORPUSCULAR VOLUME 94.6 fL (80-94); MONOCYTES # (AUTO) 0.1 K/uL (0.8-1.0); NEUTROPHILS # (AUTO) 3.7 K/uL (1.8-7.7); NEUTROPHILS % (AUTO) 29.5 % (42.2-75.2); PLATELET COUNT (AUTO) 257 K/uL (140-450); RED BLOOD CELL COUNT(AUTO) 2.42 MIL/uL (4.20-6.10); RED CELL DISTRIBUTION WIDTH 16.9 % (11.6-13.7); WHITE BLOOD COUNT (AUTO) 12.5 K/uL (4.8-10.8)
[2023-08-21 09:39] LABS: ALANINE AMINOTRANSFERASE 49 U/L (12-78); ALBUMIN 1.4 g/dL (3.4-5.0); ALKALINE PHOSPHATASE 163 U/L (50-136); ANION GAP 11.9 (8-16); ASPARTATE AMINOTRANSFERASE 49 U/L (15-37); CALCIUM 7.5 mg/dL (8.5-10.1); CARBON DIOXIDE 28.5 mmol/L (21-32); CHLORIDE 107 mmol/L (98-107); CREATININE 1.9 mg/dL (0.6-1.3); GLUCOSE 197 mg/dL (74-106); POTASSIUM 5.4 mmol/L (3.5-5.1); SODIUM SERUM 142 mmol/L (136-145); TOTAL BILIRUBIN 0.3 mg/dL (0.0-1.0); TOTAL PROTEIN, SERUM 6.1 g/dL (6.4-8.2)
[2023-08-21 09:43] LABS: UREA NITROGEN, BLOOD 92 mg/dL (7-18)
[2023-08-21] MEDS ORDERED: MICA100V IV (12:16)
[2023-08-21] MEDS ORDERED: METO50TA99 PO (12:16)
[2023-08-21] MEDS ORDERED: HUMSLIDE SUBQ (12:16)
[2023-08-21] MEDS ORDERED: KAY15 GT (12:16)
[2023-08-21] MEDS ORDERED: LANTUS SUBQ (12:16)
[2023-08-21] MEDS ORDERED: SODIUM POLYSTYRENE 15 GM/60 ML UDBTL GT SCH (16:15)
[2023-08-21] MEDS: SODIUM POLYSTYRENE 15 GM/60 ML UDBTL GT SCH (16:21)
== END 2023-08-21 17:05 | DRG 870 ==
LOC: MED 22:17 → MTU 08-07 05:59 → MMU 08-07 13:41 → MTU 08-07 14:23
PROVIDERS: ADMIT Family Medicine; ATTEND Family Medicine
PROC: 5A1955Z Respiratory Ventilation, Greater than 96 Consecutive Hours (ICD-10-PCS; principal; 2023-08-06)
PROC: 0W993ZZ Drainage of Right Pleural Cavity, Percutaneous Approach (ICD-10-PCS; 2023-08-14)
PROC: 30233N1 Transfusion of Nonautologous Red Blood Cells into Peripheral Vein, Percutaneous Approach (ICD-10-PCS; 2023-08-17)
DX: A41.9 Sepsis, unspecified organism (principal); I50.33 Acute on chronic diastolic (congestive) heart failure; J15.69 Pneumonia due to other Gram-negative bacteria; N39.0 Urinary tract infection, site not specified; G93.40 Encephalopathy, unspecified; J96.10 Chronic respiratory failure, unspecified whether with hypoxia or hypercapnia; N17.9 Acute kidney failure, unspecified; I13.0 Hypertensive heart and chronic kidney disease with heart failure and stage 1 through stage 4 chronic kidney disease, or unspecified chronic kidney disease; J95.851 Ventilator associated pneumonia; N18.9 Chronic kidney disease, unspecified; F03.90 Unspecified dementia, unspecified severity, without behavioral disturbance, psychotic disturbance, mood disturbance, and anxiety; D63.8 Anemia in other chronic diseases classified elsewhere; E88.09 Other disorders of plasma-protein metabolism, not elsewhere classified; I48.0 Paroxysmal atrial fibrillation; E11.22 Type 2 diabetes mellitus with diabetic chronic kidney disease; J44.9 Chronic obstructive pulmonary disease, unspecified; Z93.0 Tracheostomy status; Z79.01 Long term (current) use of anticoagulants; I48.91 Unspecified atrial fibrillation
CPT/HCPCS: 36415; 71045; 71250; 76604; 76942; 78807; 80048; 80053; 80076; 81001; 82009; 82272; 82948; 83540; 83605; 83735; 83880; 84100; 85018; 85025; 85610; 85730; 86886; 86900; 86901; 86920; 87040; 87081; 87086; 93005; 94002; 94003; 96365; 96375; 99285; C9113; J0696; J1815; J1940; J2001; J2185; J2248; J2250; J2916; J3010; J3370; J7060; P9016; Q0092

== ENCOUNTER 2023-08-23 02:08 | Inpatient (IN) | payer OTHER, MEDICAID ==
[2023-08-23] VITALS (19 sets, daily range): BP systolic 91–134; BP diastolic 52–76; PULSE 90–124; RESP 18–22; TEMP 97.2–98.2; O2SAT 97–100
[~2023-08-23] VITALS: Ht 177.8 cm; Wt 67.6 kg
[~2023-08-23 02:08] MED LIST: ACET-8470 GT; ASCO500T95 GT; ASPI-1749 PO; CARB1DRO OP; CHOL5000 GT; DOCU-299 PO; HUM SUBQ; HUMSLIDE SUBQ; KAY15 GT; LANTUS SUBQ; MAGN400S60 GT; METO50TA99 PO; METO5TAB4 PO; MICA100V IV; PRO5 GT; VITA1TAB44 GT; ZINC220T3 GT; [UNRECOGNIZED DRUG - CODE] GT; [UNRECOGNIZED DRUG - CODE] IJ; [UNRECOGNIZED DRUG - CODE] TD
[2023-08-23] MEDS ORDERED: NACL 0.9% 250 ML IV ONE (02:55)
[2023-08-23] MEDS ORDERED: METOPROLOL 50 MG TAB PO ONE (03:10)
[2023-08-23] MEDS ORDERED: METOPROLOL 5 MG/5 ML VIAL IVP ONE (03:10)
[2023-08-23 03:15] LABS: BLOOD GAS BASE EXCESS 2.9 mmol/L (-2.0-2.0); BLOOD GAS HCO3 26.7 mmol/L (22-26); BLOOD GAS PCO2 37.5 mmHg (35-45); BLOOD GAS PH 7.471 (7.35-7.45); BLOOD GAS PO2 52.6 mmHg (75-100)
[2023-08-23 03:35] LABS: BASOPHILS % (AUTO) 0.2 % (0.0-2.0); EOSINOPHILS # (AUTO) 0.2 K/uL (0-0.4); EOSINOPHILS % (AUTO) 1.5 % (0.0-4.0); HEMATOCRIT 22.1 % (36-52); HEMOGLOBIN 7.2 g/dL (12.0-18.0); LYMPHOCYTES # (AUTO) 7.6 K/uL (2.0-11.5); MEAN CORPUSCULAR HEMOGLOBIN 30 pg (27-31); MEAN CORPUSCULAR HGB CONC 33 g/dL (33-37); MEAN CORPUSCULAR VOLUME 93.6 fL (80-94); MONOCYTES # (AUTO) 0.1 K/uL (0.8-1.0); MONOCYTES % (AUTO) 0.9 % (1.7-9.3); NEUTROPHILS # (AUTO) 4.2 K/uL (1.8-7.7); NEUTROPHILS % (AUTO) 34.4 % (42.2-75.2); PLATELET COUNT (AUTO) 266 K/uL (140-450); RED BLOOD CELL COUNT(AUTO) 2.36 MIL/uL (4.20-6.10); RED CELL DISTRIBUTION WIDTH 16.9 % (11.6-13.7); WHITE BLOOD COUNT (AUTO) 12.1 K/uL (4.8-10.8)
[2023-08-23] MEDS ORDERED: FUROSEMIDE 100 MG/10 ML VIAL IVP ONE (03:50)
[2023-08-23 03:52] LABS: INR 1.09 (0.8-1.2); PARTIAL THROMBOPLASTIN TIME 40.3 secs (22-35.6); PROTHROMBIN TIME 11.4 secs (10.8-13.4)
[2023-08-23 03:53] LABS: ALBUMIN 1.4 g/dL (3.4-5.0); BILIRUBIN,DIRECT 0.2 mg/dL (0.0-0.3); TOTAL BILIRUBIN 0.4 mg/dL (0.0-1.0); TOTAL PROTEIN, SERUM 6.1 g/dL (6.4-8.2)
[2023-08-23] MEDS ORDERED: VANCOMYCIN 1,000 MG in DEXTROSE 5% 250 ML IV ONE (03:55)
[2023-08-23 03:56] LABS: LACTIC ACID 0.8 mmol/L (0.4-2.0)
[2023-08-23] MEDS ORDERED: VANCOMYCIN 1,000 MG VIAL ONE (03:57)
[2023-08-23 04:03] LABS: APPEARANCE,URINE CLEAR (CLEAR); BILIRUBIN,URINE NEGATIVE (NEGATIVE); BLOOD, URINE NEGATIVE (NEGATIVE); COLOR,URINE YELLOW (YELLOW); LEUKOCYTE ESTERASE ,URINE 1+ (NEGATIVE); NITRITE, URINE NEGATIVE (NEGATIVE); PH,URINE 7.5 (5.0-9.0); PROTEIN,URINE TRACE (NEGATIVE); UGLUCOSE NEGATIVE (NEGATIVE); UROBILINOGEN,URINE 0.2 EU/dL (0.2 - 1)
[2023-08-23 04:06] LABS: FLU A ANTIGEN negative (NEGATIVE); FLU B ANTIGEN NEGATIVE (NEGATIVE)
[2023-08-23 04:10] LABS: BACTERIA,URINE 10-30 (MOD) /HPF (None Seen); MUCUS,URINE 1+ /LPF (None Seen); RBC,URINE 0-5 /HPF (0-5); SQUAMOUS EPITHELIAL CELL,UR 4-10 (MOD) /LPF (0-3 (FEW))
[2023-08-23] MEDS ORDERED: CRUSHER, PILL MC ONE ×2 (04:10→09:14)
[2023-08-23 04:37] LABS: ANION GAP 10.1 (8-16); CALCIUM 7.3 mg/dL (8.5-10.1); CARBON DIOXIDE 31.6 mmol/L (21-32); CHLORIDE 107 mmol/L (98-107); CREATININE 1.9 mg/dL (0.6-1.3); GLUCOSE 158 mg/dL (74-106); POTASSIUM 4.7 mmol/L (3.5-5.1); SODIUM SERUM 144 mmol/L (136-145)
[2023-08-23 04:39] LABS: UREA NITROGEN, BLOOD 99 mg/dL (7-18)
[2023-08-23] MEDS ORDERED: ZOLPIDEM 5 MG TAB PO PRN (04:40)
[2023-08-23] MEDS ORDERED: guaiFENesin DM 200/20 MG-10 ML 10 ML UDC PO PRN (04:40)
[2023-08-23] MEDS ORDERED: ACETAMINOPHEN 325 MG TAB PO PRN (04:40)
[2023-08-23] MEDS ORDERED: ONDANSETRON 4 MG/2 ML VIAL IM/IVP PRN (04:40)
[2023-08-23] MEDS ORDERED: POTASSIUM CHLORIDE 10 MEQ TABER PO PRN (04:40)
[2023-08-23] MEDS ORDERED: DOCUSATE SODIUM 100 MG GELCAP PO PRN (04:40)
[2023-08-23] MEDS ORDERED: HYDROcodone/APAP 7.5/325 MG 1 TAB PO PRN (04:40)
[2023-08-23] MEDS ORDERED: VANCOMYCIN PER PHARMACY MC SCH (04:45)
[2023-08-23] MEDS: PIPERACILLIN/TAZOBACTAM 3.375 GM in DEXTROSE 5% 50 ML IV SCH ×3 (06:11→20:23)
[2023-08-23] MEDS ORDERED: PIPERACILLIN/TAZOBACTAM 3.375 GM VIAL IV ONE (06:14)
[2023-08-23] MEDS ORDERED: PANTOPRAZOLE 40 MG INJ VIAL ONE (07:36)
[2023-08-23] MEDS: PANTOPRAZOLE 40 MG TABEC PO SCH (09:16)
[2023-08-23] MEDS ORDERED: guaiFENesin DM 200/20 MG-10 ML 10 ML UDC GT PRN (09:45)
[2023-08-23] MEDS ORDERED: POTASSIUM CHLORIDE 20% 40 MEQ/15 ML UDC GT PRN (09:45)
[2023-08-23] MEDS ORDERED: DOCUSATE 100 MG/10 ML UDC GT PRN (09:45)
[2023-08-23] MEDS ORDERED: Z-GUARD PASTE TP PRN (16:40)
[2023-08-23] MEDS ORDERED: THERAHONEY GEL 42.5 GM TP PRN (16:40)
[2023-08-23] MEDS ORDERED: HYDROCOLLOID DRESSING TP PRN (16:40)
[2023-08-23] MEDS ORDERED: DEXTROSE 50% 50 ML SYR IVP PRN (21:35)
[2023-08-24] VITALS (14 sets, daily range): BP systolic 91–129; BP diastolic 49–76; PULSE 13–128; RESP 16–22; TEMP 97.1–98.1; O2SAT 95–100
[2023-08-24] MEDS: PIPERACILLIN/TAZOBACTAM 3.375 GM in DEXTROSE 5% 50 ML IV SCH ×3 (04:08→20:08)
[2023-08-24] MEDS: BLOOD GLUCOSE MONITORING 1 DEV DEV FS SCH ×4 (06:33→20:13)
[2023-08-24 06:34] LABS: BASOPHILS # (AUTO) 0.1 K/uL (0.00-0.22); BASOPHILS % (AUTO) 0.6 % (0.0-2.0); EOSINOPHILS # (AUTO) 0.1 K/uL (0-0.4); EOSINOPHILS % (AUTO) 0.9 % (0.0-4.0); HEMATOCRIT 25.1 % (36-52); HEMOGLOBIN 8.5 g/dL (12.0-18.0); LYMPHOCYTES # (AUTO) 4.7 K/uL (2.0-11.5); LYMPHOCYTES % (AUTO) 53.2 % (20.5-51.1); MEAN CORPUSCULAR HEMOGLOBIN 31 pg (27-31); MEAN CORPUSCULAR HGB CONC 34 g/dL (33-37); MEAN CORPUSCULAR VOLUME 92.4 fL (80-94); MONOCYTES # (AUTO) 0.1 K/uL (0.8-1.0); MONOCYTES % (AUTO) 1.2 % (1.7-9.3); NEUTROPHILS # (AUTO) 3.9 K/uL (1.8-7.7); NEUTROPHILS % (AUTO) 44.1 % (42.2-75.2); PLATELET COUNT (AUTO) 237 K/uL (140-450); RED BLOOD CELL COUNT(AUTO) 2.72 MIL/uL (4.20-6.10); RED CELL DISTRIBUTION WIDTH 16.4 % (11.6-13.7); WHITE BLOOD COUNT (AUTO) 8.9 K/uL (4.8-10.8)
[2023-08-24 07:11] LABS: ALANINE AMINOTRANSFERASE 36 U/L (12-78); ALBUMIN 1.4 g/dL (3.4-5.0); ALKALINE PHOSPHATASE 150 U/L (50-136); ASPARTATE AMINOTRANSFERASE 28 U/L (15-37); CALCIUM 7.7 mg/dL (8.5-10.1); CARBON DIOXIDE 27.5 mmol/L (21-32); CHLORIDE 106 mmol/L (98-107); CREATININE 2.1 mg/dL (0.6-1.3); GLUCOSE 157 mg/dL (74-106); POTASSIUM 4.5 mmol/L (3.5-5.1); SODIUM SERUM 144 mmol/L (136-145); TOTAL BILIRUBIN 0.8 mg/dL (0.0-1.0); TOTAL PROTEIN, SERUM 6.1 g/dL (6.4-8.2)
[2023-08-24 07:14] LABS: UREA NITROGEN, BLOOD 97 mg/dL (7-18)
[2023-08-24] MEDS: DOCUSATE SODIUM 100 MG GELCAP PO SCH (09:00)
[2023-08-24] MEDS ORDERED: MICAFUNGIN SODIUM 100 MG VIAL IV SCH (09:00)
[2023-08-24] MEDS ORDERED: MICAFUNGIN SODIUM 100 MG in NACL 0.9% 100 ML IV SCH (09:00)
[2023-08-24] MEDS ORDERED: CRUSHER, PILL MC ONE (09:43)
[2023-08-24] MEDS: PANTOPRAZOLE 40 MG TABEC PO SCH (09:54)
[2023-08-24] MEDS: VIT-B COMP/VIT-C/FOLIC ACID 1 TAB GT SCH (09:54)
[2023-08-24] MEDS: METOPROLOL 50 MG TAB PO SCH ×2 (09:54→20:09)
[2023-08-24] MEDS: MAGNESIUM HYDROXIDE 2400 MG/30 ML UDC GT SCH (09:54)
[2023-08-24] MEDS: MIDODRINE 5 MG TAB GT SCH (09:54)
[2023-08-24] MEDS: ASCORBIC ACID 500 MG TAB GT SCH (09:57)
[2023-08-24] MEDS ORDERED: VANCOMYCIN 1,000 MG in DEXTROSE 5% 250 ML IV SCH (10:00)
[2023-08-24] MEDS: MICAFUNGIN SODIUM 100 MG in NACL 0.9% 100 ML IV SCH (12:30)
[2023-08-24] MEDS: SODIUM POLYSTYRENE 15 GM/60 ML UDBTL GT SCH (12:31)
[2023-08-24] MEDS: Z-GUARD PASTE TP SCH ×2 (13:54)
[2023-08-24] MEDS: THERAHONEY GEL 42.5 GM TP SCH (14:01)
[2023-08-24] MEDS: INSULIN LISPRO SLIDING SCALE 100 UNITS/ML VIAL SUBQ PRN ×2 (17:54→21:12)
[2023-08-25] VITALS (14 sets, daily range): BP systolic 104–135; BP diastolic 57–73; PULSE 95–125; RESP 17–22; TEMP 97.5–98.9; O2SAT 98–100
[2023-08-25] MEDS: NACL 0.9% 1,000 ML IV SCH ×3 (00:39→23:10)
[2023-08-25] MEDS: Z-GUARD PASTE TP SCH ×2 (01:29→13:42)
[2023-08-25] MEDS: PIPERACILLIN/TAZOBACTAM 2.25 GM in DEXTROSE 5% 50 ML IV SCH ×3 (05:00→20:27)
[2023-08-25] MEDS ORDERED: PIPERACILLIN/TAZOBACTAM 2.25 GM VIAL IV ONE (05:47)
[2023-08-25] MEDS: BLOOD GLUCOSE MONITORING 1 DEV DEV FS SCH ×4 (06:48→20:19)
[2023-08-25] MEDS: INSULIN LISPRO SLIDING SCALE 100 UNITS/ML VIAL SUBQ PRN ×3 (06:51→20:34)
[2023-08-25 06:53] LABS: BASOPHILS % (AUTO) 0.4 % (0.0-2.0); EOSINOPHILS # (AUTO) 0.1 K/uL (0-0.4); EOSINOPHILS % (AUTO) 0.9 % (0.0-4.0); HEMATOCRIT 24.2 % (36-52); HEMOGLOBIN 8.1 g/dL (12.0-18.0); LYMPHOCYTES # (AUTO) 4.7 K/uL (2.0-11.5); LYMPHOCYTES % (AUTO) 53.4 % (20.5-51.1); MEAN CORPUSCULAR HEMOGLOBIN 31 pg (27-31); MEAN CORPUSCULAR HGB CONC 34 g/dL (33-37); MEAN CORPUSCULAR VOLUME 93.1 fL (80-94); MONOCYTES # (AUTO) 0.1 K/uL (0.8-1.0); MONOCYTES % (AUTO) 1.3 % (1.7-9.3); NEUTROPHILS # (AUTO) 3.9 K/uL (1.8-7.7); PLATELET COUNT (AUTO) 237 K/uL (140-450); RED CELL DISTRIBUTION WIDTH 16.1 % (11.6-13.7); WHITE BLOOD COUNT (AUTO) 8.8 K/uL (4.8-10.8)
[2023-08-25 07:53] LABS: CALCIUM 7.9 mg/dL (8.5-10.1); CARBON DIOXIDE 27.2 mmol/L (21-32); CHLORIDE 108 mmol/L (98-107); CREATININE 2.3 mg/dL (0.6-1.3); GLUCOSE 179 mg/dL (74-106); POTASSIUM 4.2 mmol/L (3.5-5.1); SODIUM SERUM 147 mmol/L (136-145)
[2023-08-25 07:57] LABS: UREA NITROGEN, BLOOD 102 mg/dL (7-18)
[2023-08-25 07:59] LABS: ALANINE AMINOTRANSFERASE 33 U/L (12-78); ALBUMIN 1.4 g/dL (3.4-5.0); ALKALINE PHOSPHATASE 151 U/L (50-136); ASPARTATE AMINOTRANSFERASE 24 U/L (15-37); TOTAL BILIRUBIN 0.7 mg/dL (0.0-1.0)
[2023-08-25] MEDS: DOCUSATE SODIUM 100 MG GELCAP PO SCH (09:00)
[2023-08-25] MEDS: MICAFUNGIN SODIUM 100 MG in NACL 0.9% 100 ML IV SCH (09:50)
[2023-08-25] MEDS: PANTOPRAZOLE 40 MG TABEC PO SCH (09:51)
[2023-08-25] MEDS: VIT-B COMP/VIT-C/FOLIC ACID 1 TAB GT SCH (09:51)
[2023-08-25] MEDS: MIDODRINE 5 MG TAB GT SCH (09:51)
[2023-08-25] MEDS: METOPROLOL 50 MG TAB PO SCH ×2 (09:52→20:31)
[2023-08-25] MEDS: ASCORBIC ACID 500 MG TAB GT SCH (09:52)
[2023-08-25] MEDS: MAGNESIUM HYDROXIDE 2400 MG/30 ML UDC GT SCH (09:53)
[2023-08-25] MEDS ORDERED: VANCOMYCIN 500 MG in DEXTROSE 5% 100 ML IV SCH (10:00)
[2023-08-25] MEDS: DEXT 5% / NACL 0.45% 1,000 ML IV SCH (10:31)
[2023-08-25] MEDS: SODIUM POLYSTYRENE 15 GM/60 ML UDBTL GT SCH (12:26)
[2023-08-25] MEDS: THERAHONEY GEL 42.5 GM TP SCH (13:42)
[2023-08-26] VITALS (12 sets, daily range): BP systolic 107–131; BP diastolic 61–82; PULSE 92–116; RESP 17–19; TEMP 98–99; O2SAT 99–100
[2023-08-26] MEDS: DEXT 5% / NACL 0.45% 1,000 ML IV SCH ×2 (01:25→14:44)
[2023-08-26] MEDS: Z-GUARD PASTE TP SCH ×2 (01:27→13:00)
[2023-08-26] MEDS: PIPERACILLIN/TAZOBACTAM 2.25 GM in DEXTROSE 5% 50 ML IV SCH ×3 (04:40→20:42)
[2023-08-26] MEDS: BLOOD GLUCOSE MONITORING 1 DEV DEV FS SCH ×4 (06:34→20:41)
[2023-08-26] MEDS: INSULIN LISPRO SLIDING SCALE 100 UNITS/ML VIAL SUBQ PRN ×4 (06:36→20:46)
[2023-08-26 07:07] LABS: BASOPHILS % (AUTO) 0.4 % (0.0-2.0); EOSINOPHILS # (AUTO) 0.1 K/uL (0-0.4); HEMATOCRIT 22.7 % (36-52); HEMOGLOBIN 7.6 g/dL (12.0-18.0); LYMPHOCYTES # (AUTO) 4.1 K/uL (2.0-11.5); MEAN CORPUSCULAR HEMOGLOBIN 31 pg (27-31); MEAN CORPUSCULAR HGB CONC 33 g/dL (33-37); MEAN CORPUSCULAR VOLUME 92.4 fL (80-94); MONOCYTES # (AUTO) 0.1 K/uL (0.8-1.0); MONOCYTES % (AUTO) 1.3 % (1.7-9.3); NEUTROPHILS % (AUTO) 41.3 % (42.2-75.2); PLATELET COUNT (AUTO) 225 K/uL (140-450); RED BLOOD CELL COUNT(AUTO) 2.46 MIL/uL (4.20-6.10); RED CELL DISTRIBUTION WIDTH 15.7 % (11.6-13.7); WHITE BLOOD COUNT (AUTO) 7.3 K/uL (4.8-10.8)
[2023-08-26 07:33] LABS: ALANINE AMINOTRANSFERASE 28 U/L (12-78); ALBUMIN 1.3 g/dL (3.4-5.0); ALKALINE PHOSPHATASE 136 U/L (50-136); ANION GAP 18.9 (8-16); ASPARTATE AMINOTRANSFERASE 20 U/L (15-37); CALCIUM 7.5 mg/dL (8.5-10.1); CARBON DIOXIDE 25.7 mmol/L (21-32); CHLORIDE 107 mmol/L (98-107); CREATININE 2.2 mg/dL (0.6-1.3); GLUCOSE 288 mg/dL (74-106); POTASSIUM 3.6 mmol/L (3.5-5.1); SODIUM SERUM 148 mmol/L (136-145); TOTAL BILIRUBIN 0.6 mg/dL (0.0-1.0); TOTAL PROTEIN, SERUM 5.8 g/dL (6.4-8.2)
[2023-08-26 07:38] LABS: UREA NITROGEN, BLOOD 93 mg/dL (7-18)
[2023-08-26] MEDS: DOCUSATE SODIUM 100 MG GELCAP PO SCH (09:00)
[2023-08-26] MEDS: MAGNESIUM HYDROXIDE 2400 MG/30 ML UDC GT SCH (09:42)
[2023-08-26] MEDS: ASCORBIC ACID 500 MG TAB GT SCH (09:50)
[2023-08-26] MEDS: PANTOPRAZOLE 40 MG TABEC PO SCH (09:50)
[2023-08-26] MEDS: VIT-B COMP/VIT-C/FOLIC ACID 1 TAB GT SCH (09:50)
[2023-08-26] MEDS: METOPROLOL 50 MG TAB PO SCH ×2 (09:50→20:50)
[2023-08-26] MEDS: MIDODRINE 5 MG TAB GT SCH (09:50)
[2023-08-26] MEDS: MICAFUNGIN SODIUM 100 MG in NACL 0.9% 100 ML IV SCH (09:57)
[2023-08-26] MEDS: NACL 0.9% 1,000 ML IV SCH (11:40)
[2023-08-26] MEDS: SODIUM POLYSTYRENE 15 GM/60 ML UDBTL GT SCH (12:00)
[2023-08-26] MEDS ORDERED: HYDROCOLLOID DRESSING TP SCH (13:00)
[2023-08-26] MEDS: THERAHONEY GEL 42.5 GM TP SCH (13:00)
[2023-08-26 19:08] LABS: CREATININE,URINE RANDOM 22 mg/dL (30-125); URINE SODIUM, RANDOM 47 mmol/l (40-220)
[2023-08-27] VITALS (13 sets, daily range): BP systolic 10–131; BP diastolic 64–82; PULSE 90–113; RESP 16–21; TEMP 97.8–99; O2SAT 98–100
[2023-08-27] MEDS: Z-GUARD PASTE TP SCH ×2 (01:38→13:43)
[2023-08-27] MEDS: PIPERACILLIN/TAZOBACTAM 2.25 GM in DEXTROSE 5% 50 ML IV SCH ×2 (05:00→13:45)
[2023-08-27] MEDS: BLOOD GLUCOSE MONITORING 1 DEV DEV FS SCH ×4 (06:31→21:05)
[2023-08-27] MEDS: INSULIN LISPRO SLIDING SCALE 100 UNITS/ML VIAL SUBQ PRN ×4 (06:33→21:10)
[2023-08-27 06:59] LABS: BASOPHILS % (AUTO) 0.5 % (0.0-2.0); EOSINOPHILS # (AUTO) 0.1 K/uL (0-0.4); EOSINOPHILS % (AUTO) 1.5 % (0.0-4.0); HEMATOCRIT 21.5 % (36-52); HEMOGLOBIN 7.3 g/dL (12.0-18.0); LYMPHOCYTES # (AUTO) 4.5 K/uL (2.0-11.5); LYMPHOCYTES % (AUTO) 61.8 % (20.5-51.1); MEAN CORPUSCULAR HEMOGLOBIN 31 pg (27-31); MEAN CORPUSCULAR HGB CONC 34 g/dL (33-37); MONOCYTES # (AUTO) 0.1 K/uL (0.8-1.0); MONOCYTES % (AUTO) 1.3 % (1.7-9.3); NEUTROPHILS # (AUTO) 2.6 K/uL (1.8-7.7); NEUTROPHILS % (AUTO) 34.9 % (42.2-75.2); PLATELET COUNT (AUTO) 207 K/uL (140-450); RED BLOOD CELL COUNT(AUTO) 2.34 MIL/uL (4.20-6.10); RED CELL DISTRIBUTION WIDTH 16.1 % (11.6-13.7); WHITE BLOOD COUNT (AUTO) 7.3 K/uL (4.8-10.8)
[2023-08-27 07:25] LABS: ALANINE AMINOTRANSFERASE 21 U/L (12-78); ALBUMIN 1.3 g/dL (3.4-5.0); ALKALINE PHOSPHATASE 122 U/L (50-136); ANION GAP 16.6 (8-16); ASPARTATE AMINOTRANSFERASE 18 U/L (15-37); CALCIUM 7.5 mg/dL (8.5-10.1); CARBON DIOXIDE 26.7 mmol/L (21-32); CHLORIDE 108 mmol/L (98-107); CREATININE 2.2 mg/dL (0.6-1.3); GLUCOSE 320 mg/dL (74-106); POTASSIUM 3.3 mmol/L (3.5-5.1); SODIUM SERUM 148 mmol/L (136-145); TOTAL BILIRUBIN 0.5 mg/dL (0.0-1.0); TOTAL PROTEIN, SERUM 5.6 g/dL (6.4-8.2)
[2023-08-27 07:30] LABS: UREA NITROGEN, BLOOD 88 mg/dL (7-18)
[2023-08-27] MEDS ORDERED: VANCOMYCIN 750 MG in DEXTROSE 5% 250 ML IV SCH (10:00)
[2023-08-27] MEDS: DOCUSATE 100 MG/10 ML UDC GT SCH (10:03)
[2023-08-27] MEDS: MICAFUNGIN SODIUM 100 MG in NACL 0.9% 100 ML IV SCH (10:03)
[2023-08-27] MEDS: VIT-B COMP/VIT-C/FOLIC ACID 1 TAB GT SCH (10:04)
[2023-08-27] MEDS: MIDODRINE 5 MG TAB GT SCH (10:04)
[2023-08-27] MEDS: METOPROLOL 50 MG TAB PO SCH ×2 (10:05→21:07)
[2023-08-27] MEDS: MAGNESIUM HYDROXIDE 2400 MG/30 ML UDC GT SCH (10:06)
[2023-08-27] MEDS: INSULIN LANTUS 100 UNITS/ML 10 ML VIAL SUBQ SCH (10:22)
[2023-08-27] MEDS: ASCORBIC ACID 500 MG TAB GT SCH (10:27)
[2023-08-27] MEDS: SODIUM POLYSTYRENE 15 GM/60 ML UDBTL GT SCH (12:00)
[2023-08-27] MEDS: THERAHONEY GEL 42.5 GM TP SCH (15:37)
[2023-08-27] MEDS: DEXTROSE 5% 1,000 ML IV SCH (17:36)
[2023-08-28] VITALS (13 sets, daily range): BP systolic 91–158; BP diastolic 51–90; PULSE 79–102; RESP 16–21; TEMP 97.5–98.9; O2SAT 96–100
[2023-08-28] MEDS: Z-GUARD PASTE TP SCH ×2 (00:57→13:50)
[2023-08-28] MEDS: DEXTROSE 5% 1,000 ML IV SCH ×2 (03:41→13:49)
[2023-08-28 06:17] LABS: BASOPHILS % (AUTO) 0.3 % (0.0-2.0); EOSINOPHILS # (AUTO) 0.2 K/uL (0-0.4); EOSINOPHILS % (AUTO) 2.2 % (0.0-4.0); HEMATOCRIT 22.8 % (36-52); HEMOGLOBIN 7.8 g/dL (12.0-18.0); LYMPHOCYTES # (AUTO) 6.3 K/uL (2.0-11.5); LYMPHOCYTES % (AUTO) 66.1 % (20.5-51.1); MEAN CORPUSCULAR HEMOGLOBIN 31 pg (27-31); MEAN CORPUSCULAR HGB CONC 34 g/dL (33-37); MONOCYTES # (AUTO) 0.1 K/uL (0.8-1.0); MONOCYTES % (AUTO) 1.3 % (1.7-9.3); NEUTROPHILS # (AUTO) 2.9 K/uL (1.8-7.7); NEUTROPHILS % (AUTO) 30.1 % (42.2-75.2); PLATELET COUNT (AUTO) 178 K/uL (140-450); RED BLOOD CELL COUNT(AUTO) 2.48 MIL/uL (4.20-6.10); RED CELL DISTRIBUTION WIDTH 15.9 % (11.6-13.7); WHITE BLOOD COUNT (AUTO) 9.5 K/uL (4.8-10.8)
[2023-08-28] MEDS: BLOOD GLUCOSE MONITORING 1 DEV DEV FS SCH ×3 (06:30→16:30)
[2023-08-28] MEDS: INSULIN LISPRO SLIDING SCALE 100 UNITS/ML VIAL SUBQ PRN ×3 (06:32→18:04)
[2023-08-28 07:03] LABS: ALANINE AMINOTRANSFERASE 50 U/L (12-78); ALBUMIN 1.7 g/dL (3.4-5.0); ALKALINE PHOSPHATASE 193 U/L (50-136); ANION GAP 12.5 (8-16); ASPARTATE AMINOTRANSFERASE 33 U/L (15-37); CALCIUM 8.2 mg/dL (8.5-10.1); CHLORIDE 104 mmol/L (98-107); CREATININE 1.8 mg/dL (0.6-1.3); GLUCOSE 119 mg/dL (74-106); POTASSIUM 3.5 mmol/L (3.5-5.1); SODIUM SERUM 138 mmol/L (136-145); TOTAL BILIRUBIN 0.5 mg/dL (0.0-1.0); TOTAL PROTEIN, SERUM 6.2 g/dL (6.4-8.2)
[2023-08-28 07:06] LABS: UREA NITROGEN, BLOOD 31 mg/dL (7-18)
[2023-08-28] MEDS ORDERED: PANTOPRAZOLE 40 MG INJ VIAL IVP SCH (09:00)
[2023-08-28] MEDS: DOCUSATE 100 MG/10 ML UDC GT SCH (09:36)
[2023-08-28] MEDS: MAGNESIUM HYDROXIDE 2400 MG/30 ML UDC GT SCH (09:36)
[2023-08-28] MEDS: METOPROLOL 50 MG TAB PO SCH (09:37)
[2023-08-28] MEDS: ASCORBIC ACID 500 MG TAB GT SCH (09:37)
[2023-08-28] MEDS: MIDODRINE 5 MG TAB GT SCH (09:38)
[2023-08-28] MEDS: VIT-B COMP/VIT-C/FOLIC ACID 1 TAB GT SCH (09:41)
[2023-08-28] MEDS: INSULIN LANTUS 100 UNITS/ML 10 ML VIAL SUBQ SCH (09:49)
[2023-08-28] MEDS: SODIUM POLYSTYRENE 15 GM/60 ML UDBTL GT SCH ×2 (11:22→11:32)
[2023-08-28] MEDS: THERAHONEY GEL 42.5 GM TP SCH (13:49)
== END 2023-08-28 20:25 | DRG 207 ==
LOC: MED 02:08 → MTU 04:41
PROVIDERS: ADMIT Student in an Organized Health Care Education/Training Program; ATTEND Student in an Organized Health Care Education/Training Program
PROC: 5A1955Z Respiratory Ventilation, Greater than 96 Consecutive Hours (ICD-10-PCS; principal; 2023-08-23)
PROC: 30233N1 Transfusion of Nonautologous Red Blood Cells into Peripheral Vein, Percutaneous Approach (ICD-10-PCS; 2023-08-23)
DX: J96.21 Acute and chronic respiratory failure with hypoxia (principal); E43 Unspecified severe protein-calorie malnutrition; J18.9 Pneumonia, unspecified organism; N17.9 Acute kidney failure, unspecified; I13.0 Hypertensive heart and chronic kidney disease with heart failure and stage 1 through stage 4 chronic kidney disease, or unspecified chronic kidney disease; I50.32 Chronic diastolic (congestive) heart failure; I48.20 Chronic atrial fibrillation, unspecified; J44.0 Chronic obstructive pulmonary disease with (acute) lower respiratory infection; L89.90 Pressure ulcer of unspecified site, unspecified stage; Z20.822 Contact with and (suspected) exposure to COVID-19; D63.1 Anemia in chronic kidney disease; E11.22 Type 2 diabetes mellitus with diabetic chronic kidney disease; J44.9 Chronic obstructive pulmonary disease, unspecified; N18.9 Chronic kidney disease, unspecified; Z79.899 Other long term (current) drug therapy; Z68.21 Body mass index [BMI] 21.0-21.9, adult
CPT/HCPCS: 36415; 36430; 71045; 80048; 80053; 80076; 80202; 81001; 82570; 82948; 83605; 83880; 84300; 84484; 85025; 85610; 85730; 86886; 86900; 86901; 86920; 87040; 87070; 87081; 87086; 87205; 93005; 94002; 94003; 96374; 96375; 99285; C9113; J1815; J1940; J2248; J2543; J3370; J3490; J7060; P9016; Q0092